=== PATIENT | female | born 1950 | race Caucasian/White ===

== ENCOUNTER 2016-08-13 13:23 | Day surgery (SDC) | payer MEDICARE, OTHER ==
--- NOTE | ~2016-08-13 | OP ---
Record Of Operation [facility] [address] [place]. [address] NAME: RADHA ARAYA : 54 STATUS : REG [facility] [place] PAT#: [id number] AGE: 65 ADM/REG DATE : 08/13/16 MR#: [id number] REPORT SERV DATE: 08/13/16 DICTATED BY: PETER HUANG DATE: 08/13/16 REPORT STATUS : Draft TRANSCRIBED BY: MODL DATE: 08/13/16 DATE OF PROCEDURE: 08/13/2016 PREOPERATIVE DIAGNOSIS: Dysfunctional right internal jugular vein PermCath. POSTOPERATIVE DIAGNOSIS: Dysfunctional right internal jugular vein PermCath. PROCEDURES: 1. Central venogram through existing PermCath. 2. Exchange of PermCath over a wire with fluoroscopic guidance. SURGEON: Peter Huang M.D. ANESTHESIA: General. ESTIMATED BLOOD LOSS: 50 mL. CONTRAST: 10 mL. COMPLICATIONS: None. INDICATIONS: Ms. Rowe a pleasant 65-year-old female with end-stage renal disease on hemodialysis via right internal jugular vein PermCath. PermCath apparently is nonfunctional. I am asked to place a new one. DETAILS OF PROCEDURE: After informed consent was obtained, the patient was brought to the endovascular suite and placed in the supine position. After administration of anesthesia, the laryngeal mask airway was placed. She was prepped and draped in the usual sterile fashion. A time-out was performed. I commenced the procedure with contrast injection through the existing PermCath. Contrast flushes easily. Central venogram was performed which showed a patent right brachiocephalic vein which feeds into a patent superior vena cava with no evidence of stenosis. On this venogram, it was evident that the catheter had either been pulled back or it was too short thus explaining its inability to function properly. As a result, I anesthetized the skin on the right side of the neck. I made a small incision and dissected down through the existing PermCath. I made a small incision in the PermCath and passed a Bentson wire through one of the ports the PermCath down the right atrium confirmed under fluoroscopy. I then removed the PermCath in its entirety. I placed a Peel-Away sheath for a new PermCath. This is a 23 cm Bard HemoSplit. The dilator and the wire were removed from the sheath. Catheter was tunneled through the existing tunnel site and then fed through the peel-away sheath while peeling it apart. Catheter came to rest at the tip of the right atrium. There was no kink in the catheter under fluoroscopy. Both ports aspirated dark venous blood and flushed easily with heparinized saline. After that, the small incision in the neck was closed with 3-0 Vicryl, 4-0 Monocryl, and Dermabond. Catheter was secured to the skin with 2-0 nylon. Sterile dressings were applied. The patient tolerated the procedure well. There were no complications. I was present and participated in the entire case as dictated. Record Of Operation [address] [address] NAME: RADHA ARAYA : 54 STATUS : REG [facility] [place] PAT#: [id number] AGE: 65 ADM/REG DATE : 08/13/16 MR#: [id number] REPORT SERV DATE: 08/13/16 DICTATED BY: PETER HUANG DATE: 08/13/16 REPORT STATUS : Draft TRANSCRIBED BY: NILDA DATE: 08/13/16 CT/NILDA Peter Huang M.D. / [id number] CC: Dez Owen M.D.
[2016-08-13 10:21] LABS: HEMOGLOBIN 8.6 g/dL (12.0-16.0)
[2016-08-13 10:24] LABS: HEMATOCRIT 26.5 % (36.0-48.0)
[2016-08-13 10:39] LABS: CALCIUM, SERUM 8.4 MG/DL (8.5-10.4); CHLORIDE, SERUM 102 MMOL/L (96-112); CO2 (CARBON DIOXIDE) 20 MMOL/L (24-34); GFR AFRICAN AMERICAN 6 ML/MIN (>=60); GFR NON AFRICAN AMERICAN 5 ML/MIN (>=60); GLUCOSE, SERUM 109 MG/DL (60-99); SODIUM, SERUM 136 MMOL/L (135-148)
[2016-08-13 10:42] LABS: BUN (BLOOD UREA NITROGEN) 59 MG/DL (6-23); CREATININE 8.05 MG/DL (0.55-1.02)
[2016-08-13 10:43] LABS: POTASSIUM, SERUM 5.5 MMOL/L (3.5-5.3)
[~2016-08-13 13:23] MED LIST: *HOMEMEDS; *UNABLE2; ALBUTEROL5 INH; ASA5GR PO; ASAB PO; ATV1 PO; AUG875 PO; CORDARONE PO; COREG6 PO; DIALYVITE PO; DIALYVITE800 MG PO; DUONEB INH; EMLA TOP; ENDOCET1 TA3 PO; FLEX PO; FOLIC PO; GLUCOSAMINEPO; INCRUSE ELLIPTA; INSNOV7030; LANTUS SC; LEVEMIR SC; LEXAPRO20 PO; LIDODERM TOP; LORTAB 5 PO; LORTAB PO; LYRICA50 PO; LYRICA75 PO; MEG20 PO; MEG40 PO; MELA3 PO; MIRAPEX250 PO; NICODERM C14 MG/24 H TOP; NICODERM C21 MG/241 TOP; NITROSTAT0.4 MG SL; NORCO1 TA1 PO; NORCO1 TAB PO; NOVOLOG SC; NOVOPEN SC; NYSTATPOW TOP; NYSTOP100000 MG TOP; OXYCOD PO; OXYCONTIN15 MG PO; P10 PO; P20 PO; PACERONE100 MG PO; PCET PO; PEP20 PO; PHOSLO PO; PR25 PO; PROAMATINE10 MG PO; PROTONIX PO; PULRESP.5 INH; RENA-VITE PO; RENVELA800 MG PO; REQUIP4 MG PO; REST15 PO; ROXICODONE15 MG PO; SENSIPAR PO; SENSIPAR30 M1 OR; SENSIPAR30 M1 PO; SEROQUEL50 MG PO; SEVE800T PO; SPIRIVA INH; SYMBICORT 160/41 INH INH; T PO; TRAZ100 PO; TRIPHROCAPS PO; VANCO500 IV; ZEASORB-AF2 % TOP; ZIN PO; ZITHROMAX500 MG PO; ZOFRAN4 PO; ZOVIRAX400 MG PO
[2017-03-01] MEDS ORDERED: LEVEMFLXPN SQ (11:09)
[2017-03-01] MEDS ORDERED: RENVELA800 MG PO (11:10)
[2017-03-01] MEDS ORDERED: NORCO1 TAB PO (11:12)
[2017-03-01] MEDS ORDERED: NITROQUICK0.4 MG SL (11:14)
[2017-03-01] MEDS ORDERED: MIRAPEX125 PO (11:15)
[2017-03-01] MEDS ORDERED: TRAZ50 PO (11:15)
[2017-03-01] MEDS ORDERED: DUONEB INH (11:16)
[2017-03-01] MEDS ORDERED: PROAIR HFA (11:17)
[2017-03-01] MEDS ORDERED: PHOSLO PO (11:22)
[2017-03-01] MEDS ORDERED: LEXAPRO20 PO (11:23)
[2017-03-01] MEDS ORDERED: SPIRIVA INH (11:23)
[2017-03-01] MEDS ORDERED: HUMALOG SC (11:23)
[2017-03-01] MEDS ORDERED: SENSIPAR60 MG PO (11:24)
[2017-03-01] MEDS ORDERED: CORDARONE PO (11:25)
[2017-03-01] MEDS ORDERED: DSS PO (11:25)
[2017-03-01] MEDS ORDERED: PRILO PO (11:26)
[2017-03-01] MEDS ORDERED: HALF81 PO (11:27)
[2017-03-01] MEDS ORDERED: VOLTAREN1 % TOP (11:28)
[2017-03-01] MEDS ORDERED: ARANESP100 IV (11:30)
[2017-03-01] MEDS ORDERED: ATV1 PO (11:30)
[2017-03-01] MEDS ORDERED: PR25 PO (11:31)
[2017-03-07] MEDS ORDERED: DUONEB INH (06:22)
[2017-03-24] MEDS ORDERED: MARI5 PO (09:29)
[2017-03-24] MEDS ORDERED: DIL2TAB PO (09:30)
[2017-03-24] MEDS ORDERED: NEPRO PO (09:32)
[2017-03-24] MEDS ORDERED: [UNRECOGNIZED DRUG - OTHER] PO (09:32)
[2017-03-24] MEDS ORDERED: BENTYL10 PO (09:33)
[2017-03-24] MEDS ORDERED: ZOFRAN4 PO (09:33)
[2017-03-24] MEDS ORDERED: ACETSUP650 PR (09:34)
[2017-03-24] MEDS ORDERED: BISR PR (09:35)
[2017-03-24] MEDS ORDERED: FLEETS ENEMA REP (09:36)
[2017-03-24] MEDS ORDERED: NEPHRO-VITE PO (09:39)
[2017-03-24] MEDS ORDERED: [UNRECOGNIZED DRUG - OTHER] PO (09:41)
[2017-03-24] MEDS ORDERED: [UNRECOGNIZED DRUG - OTHER] PO (09:41)
[2017-03-24] MEDS ORDERED: MOMUD PO (09:42)
[2017-03-24] MEDS ORDERED: HABIT21 TOP (09:43)
[2017-03-24] MEDS ORDERED: DULERA 200 MCG/13 GM INH (09:44)
[2017-03-24] MEDS ORDERED: LEVEMIR SC (10:33)
[2017-03-24] MEDS ORDERED: HUMALOG SC (10:34)
== END 2016-08-13 18:13 | disposition home or self-care (01) ==
LOC: SDC 13:23
PROVIDERS: Surgery; Surgery Vascular Surgery
PROC: B51MZZA Fluoroscopy of Right Upper Extremity Veins, Guidance (ICD-10-PCS; 2016-08-13)
PROC: 05PY33Z Removal of Infusion Device from Upper Vein, Percutaneous Approach (ICD-10-PCS; principal; 2016-08-13 11:00)
PROC: 05H933Z Insertion of Infusion Device into Right Brachial Vein, Percutaneous Approach (ICD-10-PCS; 2016-08-13 11:00)
DX: N18.6 End stage renal disease (principal); J44.9 Chronic obstructive pulmonary disease, unspecified; I25.2 Old myocardial infarction; I12.9 Hypertensive chronic kidney disease with stage 1 through stage 4 chronic kidney disease, or unspecified chronic kidney disease; N18.9 Chronic kidney disease, unspecified; E11.22 Type 2 diabetes mellitus with diabetic chronic kidney disease; Z87.891 Personal history of nicotine dependence; F41.9 Anxiety disorder, unspecified; F32.9 Major depressive disorder, single episode, unspecified; D63.1 Anemia in chronic kidney disease; E78.00 Pure hypercholesterolemia, unspecified; I25.10 Atherosclerotic heart disease of native coronary artery without angina pectoris; M19.90 Unspecified osteoarthritis, unspecified site
CPT/HCPCS: 36581; 77001; 80048; 82962; 85014; 85018; C1750; C1769; G0257; J0690; J2250; J2370; J2405; J3010; Q9967

== ENCOUNTER 2016-11-24 10:53 | Day surgery (SDC) | payer MEDICARE, OTHER ==
--- NOTE | ~2016-11-24 | OP ---
Record Of Operation [facility] [address] [place]. [address] NAME: RADHA ARAYA : 54 STATUS : [facility]#: [id number] AGE: 65 ADM/REG DATE : 11/24/16 MR#: [id number] REPORT SERV DATE: 11/24/16 DICTATED BY: GILBERTO SMITH DATE: 11/24/16 REPORT STATUS : Draft TRANSCRIBED BY: MODL DATE: 11/24/16 DATE OF PROCEDURE: 11/24/2016 PREOPERATIVE DIAGNOSIS: End-stage renal disease. POSTOPERATIVE DIAGNOSIS: End-stage renal disease. PROCEDURE: Right brachiobasilic fistula. SURGEON: Gilberto Smith M.D. CHIEF CONTROLLER: Adrianna. ANESTHESIA: Local with sedation. COMPLICATIONS: None. BLOOD LOSS: 15 mL. HISTORY: The patient is a 65-year-old female with a failed right forearm fistula. It was thought she would benefit from a right upper arm fistula. This was discussed in detail with the patient. She expressed understanding and desired to proceed. DESCRIPTION OF PROCEDURE: The patient was taken to the operating room and placed in the supine position. She was given IV sedation without complications. Right arm was prepped and draped in the sterile fashion. Ultrasound identified a large basilic vein in the left upper arm. 1% lidocaine was infiltrated in the skin and subcutaneous tissues in the distal upper arm and transverse incision created. Dissection was performed to identify the basilic vein, which was freed circumferentially from the surrounding tissues. Dissection was performed medially and the brachial artery was identified, freed circumferentially, and isolated with a vessel loop. Both the vein and artery measured 4 mm. The patient was given 3000 units of heparin intravenously. The vein was dissected distally and controlled with a clip, divided proximal to the clip, and spatulated to create a wide mouth for anastomosis. The artery was controlled proximally and distally with vascular clamps. An #11 blade used to create an arteriotomy, which was extended with Wing scissors. The vein was sewn end-to- side of the artery with a running 6-0 Prolene suture. Upon completion, flow was restored. The vein dilated nicely. There was no significant bleeding. It was dissected as proximally as possible freeing of any tension. There was a good thrill in the vein. There was strong Doppler, radial and ulnar signals at the wrist. This was felt to be an excellent result. The subcutaneous tissues were closed with 3-0 Vicryl suture, skin closed with 4-0 Monocryl suture, and Dermabond dressing applied. The patient tolerated the procedure well. She will be taken to the recovery room and discharged home when stable. [facility]/NILDA Record Of Operation [address] [place]. [address] NAME: RADHA ARAYA : 54 STATUS : [facility]#: [id number] AGE: 65 ADM/REG DATE : 11/24/16 MR#: [id number] REPORT SERV DATE: 11/24/16 DICTATED BY: GILBERTO SMITH DATE: 11/24/16 REPORT STATUS : Draft TRANSCRIBED BY: NILDA DATE: 11/24/16 Gilberto Smith M.D. / [id number] CC: Bryce Epstein M.D.
[2016-11-24 11:49] LABS: BASOPHILS 0.1 %; BASOPHILS ABSOLUTE 0.01 10/3/uL (0.0-0.16); EOSINOPHILS 1.8 %; EOSINOPHILS ABSOLUTE 0.14 10/3/uL (0.0-0.53); HEMATOCRIT 39.6 % (36.0-48.0); HEMOGLOBIN 12.6 g/dL (12.0-16.0); IMMATURE GRANULOCYTES 0.3 %; IMMATURE GRANULOCYTES ABSOLUTE 0.02 10/3/uL (0.0-0.11); LYMPHOCYTES 15.1 %; LYMPHOCYTES ABSOLUTE 1.16 10/3/uL (0.67-4.30); MANUAL DIFF NO %; MEAN CORPUS HGB CONC 31.8 g/dL (32.0-36.0); MEAN CORPUSCULAR VOLUME 94.3 fL (80-100); MONOCYTES 3.9 %; NEUTROPHILS 78.8 %; NEUTROPHILS ABSOLUTE 6.05 10/3/uL (2.02-8.40); PLATELET COUNT 107 10/3/uL (150-400); RBC DISTRIBUTION WIDTH 15.9 % (12.0-16.0); WHITE BLOOD CELLS 7.7 10/3/uL (4.5-10.5)
[2016-11-24 11:56] LABS: CALCIUM, SERUM 8.1 MG/DL (8.5-10.4); CHLORIDE, SERUM 106 MMOL/L (96-112); GFR AFRICAN AMERICAN 7 ML/MIN (>=60); GFR NON AFRICAN AMERICAN 6 ML/MIN (>=60); GLUCOSE, SERUM 94 MG/DL (60-99); SODIUM, SERUM 142 MMOL/L (135-148)
[2016-11-24 11:59] LABS: BUN (BLOOD UREA NITROGEN) 51 MG/DL (6-23); CO2 (CARBON DIOXIDE) 27 MMOL/L (24-34); CREATININE 6.36 MG/DL (0.55-1.02); POTASSIUM, SERUM 5.1 MMOL/L (3.5-5.3)
[2017-03-01] MEDS ORDERED: LEVEMFLXPN SQ (11:09)
[2017-03-01] MEDS ORDERED: RENVELA800 MG PO (11:10)
[2017-03-01] MEDS ORDERED: NORCO1 TAB PO (11:12)
[2017-03-01] MEDS ORDERED: NITROQUICK0.4 MG SL (11:14)
[2017-03-01] MEDS ORDERED: MIRAPEX125 PO (11:15)
[2017-03-01] MEDS ORDERED: TRAZ50 PO (11:15)
[2017-03-01] MEDS ORDERED: DUONEB INH (11:16)
[2017-03-01] MEDS ORDERED: PROAIR HFA (11:17)
[2017-03-01] MEDS ORDERED: PHOSLO PO (11:22)
[2017-03-01] MEDS ORDERED: HUMALOG SC (11:23)
[2017-03-01] MEDS ORDERED: SPIRIVA INH (11:23)
[2017-03-01] MEDS ORDERED: LEXAPRO20 PO (11:23)
[2017-03-01] MEDS ORDERED: SENSIPAR60 MG PO (11:24)
[2017-03-01] MEDS ORDERED: DSS PO (11:25)
[2017-03-01] MEDS ORDERED: CORDARONE PO (11:25)
[2017-03-01] MEDS ORDERED: PRILO PO (11:26)
[2017-03-01] MEDS ORDERED: HALF81 PO (11:27)
[2017-03-01] MEDS ORDERED: VOLTAREN1 % TOP (11:28)
[2017-03-01] MEDS ORDERED: ARANESP100 IV (11:30)
[2017-03-01] MEDS ORDERED: ATV1 PO (11:30)
[2017-03-01] MEDS ORDERED: PR25 PO (11:31)
[2017-03-07] MEDS ORDERED: DUONEB INH (06:22)
[2017-03-24] MEDS ORDERED: MARI5 PO (09:29)
[2017-03-24] MEDS ORDERED: DIL2TAB PO (09:30)
[2017-03-24] MEDS ORDERED: [UNRECOGNIZED DRUG - OTHER] PO (09:32)
[2017-03-24] MEDS ORDERED: NEPRO PO (09:32)
[2017-03-24] MEDS ORDERED: BENTYL10 PO (09:33)
[2017-03-24] MEDS ORDERED: ZOFRAN4 PO (09:33)
[2017-03-24] MEDS ORDERED: ACETSUP650 PR (09:34)
[2017-03-24] MEDS ORDERED: BISR PR (09:35)
[2017-03-24] MEDS ORDERED: FLEETS ENEMA REP (09:36)
[2017-03-24] MEDS ORDERED: NEPHRO-VITE PO (09:39)
[2017-03-24] MEDS ORDERED: [UNRECOGNIZED DRUG - OTHER] PO (09:41)
[2017-03-24] MEDS ORDERED: [UNRECOGNIZED DRUG - OTHER] PO (09:41)
[2017-03-24] MEDS ORDERED: MOMUD PO (09:42)
[2017-03-24] MEDS ORDERED: HABIT21 TOP (09:43)
[2017-03-24] MEDS ORDERED: DULERA 200 MCG/13 GM INH (09:44)
[2017-03-24] MEDS ORDERED: LEVEMIR SC (10:33)
[2017-03-24] MEDS ORDERED: HUMALOG SC (10:34)
== END 2016-11-24 18:14 | disposition home or self-care (01) ==
LOC: SDC 10:53
PROVIDERS: Surgery
DX: I13.2 Hypertensive heart and chronic kidney disease with heart failure and with stage 5 chronic kidney disease, or end stage renal disease (principal); N18.6 End stage renal disease; I25.10 Atherosclerotic heart disease of native coronary artery without angina pectoris; E11.22 Type 2 diabetes mellitus with diabetic chronic kidney disease; I73.9 Peripheral vascular disease, unspecified; J44.9 Chronic obstructive pulmonary disease, unspecified; F17.200 Nicotine dependence, unspecified, uncomplicated; I12.0 Hypertensive chronic kidney disease with stage 5 chronic kidney disease or end stage renal disease; I50.9 Heart failure, unspecified; Z86.718 Personal history of other venous thrombosis and embolism; Z88.8 Allergy status to other drugs, medicaments and biological substances
CPT/HCPCS: 36821; 80048; 82962; 85025; 93005; 94640; J0690; J2250; J3010